=== PATIENT | female | born 1940 | race Caucasian/White ===

== ENCOUNTER 2016-12-14 09:40 | Emergency (ER) | payer MEDICARE ==
[2016-12-14 09:49] VITALS: BP 146/72
--- NOTE | 2016-12-14 10:53 | UC ---
Skin Complaint HPI - HPI Summary HPI Summary: Red, itchy, irreg swollen bumps on face starting 4 days ago, 1 day after doing some weeding and yard work. Has had problems with persistent contact dermatitis in past ralph. Denies trouble breathing, pain, or drainage. - History of Current Complaint Chief Complaint: UCSkin Time Seen by Provider: 12/14/16 10:39 Stated Complaint: SWOLLEN FACE Hx Obtained From: Patient ?: No Onset/Duration: Gradual Onset, Lasting Days Skin Exposure Onset/Duration: Days Ago Timing: Constant Onset Severity: Mild Current Severity: Moderate Location: Face Character: Swelling, Pruritus, Raised Aggravating: Touch Alleviating: Antihistamines Associated Signs & Symptoms: Positive: Rash Related History: Possible Reaction to: Environmental Exposure - Allergy/Home Medications Allergies/Adverse Reactions: Allergies Allergy/AdvReac Type Severity Reaction Status Date / Time Codeine Allergy headache, Verified 04/19/14 12:42 nausea Erythromycin Allergy Hives Verified 04/19/14 12:42 Penicillins Allergy Hives Verified 04/19/14 12:42 Review of Systems Constitutional: Negative Skin: Rash Eyes: Negative ENT: Negative Respiratory: Negative Cardiovascular: Negative Gastrointestinal: Negative Genitourinary: Negative Motor: Negative Neurovascular: Negative Musculoskeletal: Negative Neurological: Negative Psychological: Negative All Other Systems Reviewed And Are Negative: Yes PMH/Surg Hx/FS Hx/Imm Hx Cardiovascular History: Hypertension - Surgical History Surgical History: Yes Surgery Procedure, Year, and Place: left ankle surgical repair of fracture 2007 [place] - Family History Known Family History: Positive: Hypertension - Social History Occupation: Retired Alcohol Use: None Substance Use Type: None Smoking Status (MU): Never Smoked Tobacco Physical Exam Triage Information Reviewed: Yes Appearance: Well-Appearing, No Pain Distress, Obese Vital Signs: Initial Vital Signs Temp 97.7 F 12/14/16 09:42 Pulse 78 12/14/16 09:42 Resp 17 12/14/16 09:42 BP 146/72 12/14/16 09:42 Pulse Ox 100 12/14/16 09:42 Vital Signs Reviewed: Yes Eye Exam: Normal, Other - PERRL Eyes: Positive: Conjunctiva Clear ENT Exam: Normal ENT: Positive: Normal ENT inspection, Hearing grossly normal, Pharynx normal, TMs normal Dental Exam: Normal Neck exam: Normal Neck: Positive: Supple, Nontender, No Lymphadenopathy Respiratory Exam: Normal Respiratory: Positive: Chest non-tender, Lungs clear, Normal breath sounds, No respiratory distress, No accessory muscle use Cardiovascular Exam: Normal Cardiovascular: Positive: RRR, No Murmur Musculoskeletal Exam: Normal Neurological Exam: Normal Neurological: Positive: Alert Psychological Exam: Normal Skin: Positive: rashes - irreg red areas on face, around R eye Course/Dx - Diagnoses Provider Diagnoses: contact dermatitis Discharge - Discharge Plan Condition: Stable Disposition: HOME Prescriptions: predniSONE TAB* [Deltasone TAB*] 50 mg PO DAILY #5 tab Patient Education Materials: Contact Dermatitis (ED) Referrals: Makenna Banda MD [Primary Care Provider] -
== END 2016-12-14 10:53 | disposition home or self-care (01) ==
LOC: UCEAST 09:40
DX: L25.9 Unspecified contact dermatitis, unspecified cause (principal); I10 Essential (primary) hypertension
CPT/HCPCS: 99211; G0463

== ENCOUNTER 2017-06-05 07:29 | Day surgery (SDC) | payer MEDICARE ==
[~2017-06-05 07:29] MED LIST: Buffered Lidocaine 0.9% SYRIN* 5 ML/SYR SYRINGE INTRADERM ONE; Buffered Lidocaine 0.9% SYRIN* 5 ML/SYR SYRINGE ONE; Dexamethasone IV* 4 MG/ML 1 ML (4 MG) IV SLOW PU ONE; Dexamethasone IV* 4 MG/ML 1 ML (4 MG) ONE; Famotidine IV* 10 MG/ML 2 ML (20 mg) IV ONE; Famotidine IV* 10 MG/ML 2 ML (20 mg) ONE; Lidocaine 2.5%/Prilocain 2.5%* 5 GM TUBE ONE; ceFAZolin 2 GM PREMIX (*) 2 GM/50 ML BAG IVPB ONE
[2017-06-05] MEDS ORDERED: Lidocaine 1% MPF wEPI 200,000* 30 ML SDV ONE (11:31)
[2017-06-05] MEDS ORDERED: Bupivacaine 0.25% SDV* 30 ML ONE (11:31)
[2017-06-05] MEDS ORDERED: Methylene Blue 0.5 %* 50 MG/10 ML AMP IV ONE (11:31)
[2017-06-05] MEDS ORDERED: Propofol* 10 MG/ML 20 ML BTL IV PUSH ONE (11:38)
[2017-06-05] MEDS ORDERED: Lidocaine 2% PF * 5 ML VIAL ONE (11:38)
[2017-06-05] MEDS ORDERED: fentaNYL* 50 MCG/ML 2 ML VIAL (100 MCG VIAL) ONE ×3 (11:38→14:59)
[2017-06-05] MEDS ORDERED: Midazolam* 1 MG/ML 2 ML VIAL (2 MG) ONE (11:38)
[2017-06-05] MEDS ORDERED: EPHEDrine (Pressors)* 50 MG/ML VIAL ONE (12:31)
[2017-06-05] MEDS ORDERED: Ondansetron INJ* 2 MG/ML VIAL ONE (12:58)
--- NOTE | 2017-06-05 13:24 | RAD ---
INDICATION: Left breast carcinoma. Preoperative sentinel node imaging. COMPARISON: Mammogram and left breast sonogram May 04, 2017 TECHNIQUE: A routine timeout procedure was called which included informed consent. Left breast was then prepped in usual fashion and 4 intradermal injections were made in the periareolar region. The total dose was 0.321 mCi of technetium 99m sulfur colloid. FINDINGS: There is faint visualization of the sentinel node which was marked on the skin surface. A lateral approach was required for marking which resulted in a small amount of lateral breast tissue projecting over the sentinel node. The skin alyssia was on the lateral breast. IMPRESSION: SENTINEL NODE IMAGING WAS PERFORMED. A CALL WAS PLACED TO THE REFERRING SURGEON REGARDING THE SKIN MARKING.
[2017-06-05] MEDS ORDERED: oxyCODONE/Acetamin 5/325 MG* TAB PO PRN (14:57)
[2017-06-05] MEDS ORDERED: oxyCODONE/Acetamin 5/325 MG* TAB ONE (14:59)
[2017-06-05 16:17] VITALS: BP 133/60
--- NOTE | 2017-06-06 01:55 | OP ---
CC: Dr. Ramirez; Dr. Makenna Banda; Dr. Shukri Ford; Dr. Bob Navarrete OPERATIVE REPORT: DATE OF OPERATION: 06/05/17 DATE OF : 42 SURGEON: Asaf Ramirez MD SENIOR ACCOUNTANT CPA: JONI Raya ANESTHESIOLOGIST: Dr. Oviedo. ANESTHESIA: General anesthetic, local infiltration. PRE-OP DIAGNOSIS: Left breast cancer. POST-OP DIAGNOSIS: Left breast cancer. OPERATIVE PROCEDURE: Wide local excision and sentinel lymph node biopsy of left breast cancer. DESCRIPTION OF PROCEDURE: The patient was supine on the operative table. After adequate general ane sthetic, compression stockings, Leodan Hugger warmer, and intravenous antibiotics, the left chest and a xillary region were prepped with antiseptic and draped in a sterile fashion. Local infiltrative anes thesia was administered. Elliptical incision in the region of the palpable tumor was carried out. T his was approximately 3 x 6 cm in size and the piece of breast tissue approximately 4 x 6 x 6 cm was removed and marked with usual localizing sutures and sent in formalin for pathologic evaluation. Hem ostasis was obtained using electrocautery and the closure was accomplished using 3-0 and 5-0 Vicryl f ollowed by Steri-Strips. In the left axilla, typical axillary incision was created after local anest hetic. This was about 4 to 5 cm in length and dissection carried down to the axillary tissue. A to ronak of 6 separate axillary sentinel nodes were identified. There was also some additional nonsentine l axillary tissue which was removed, all this was sent and labeled separately in formalin. Hemostasi s was obtained using cautery and suture were appropriate. Closure was accomplished using 3-0 and 5-0 Vicryl followed by Steri-Strips. She tolerated the procedure well, was awakened and brought to [facility] in good condition. No complications. No drains. Pathologic specimens as enumerated above. Spo nge and instrument counts were correct. Estimated blood loss is less than 50 mL. [id number]/[facility] #: [id number]
== END 2017-06-05 16:18 | disposition home or self-care (01) ==
LOC: OR 07:29
PROVIDERS: ATTEND Surgery
DX: C50.412 Malignant neoplasm of upper-outer quadrant of left female breast (principal); I10 Essential (primary) hypertension; E78.5 Hyperlipidemia, unspecified
CPT/HCPCS: 78195; 88307; 88341; 88342; A9270-GY; A9541; J0690; J1100; J2001; J2250; J2405; J2704; J3010

== ENCOUNTER 2021-02-22 17:08 | Inpatient (IN) ==
[2021-02-22 21:14] LABS: ABS Lymphocytes 1.1 10^3/ul (1.0-4.8); ABS Monocytes 0.4 10^3/ul (0-0.8); Hematocrit 38 % (35-47); Hemoglobin 12.9 g/dL (12.0-16.0); Lymphocyte % 24.7 %; Mean Corpuscular HGB Conc 35 g/dL (31-36); Mean Corpuscular Hemoglobin 29 pg (27-31); Mean Corpuscular Volume 83 fL (80-97); Mean Platelet Volume 8.4 fL (7.4-10.4); Nucleated Red Blood Cells % 0.2; Platelet Count 167 10^3/uL (150-450); Red Blood Count 4.54 10^6 /uL (3.70-4.87); Red Cell Distribution Width 15 % (10-15); White Blood Count 4.5 10^3/uL (3.5-10.8)
[2021-02-22 21:25] LABS: Activated Partial Thrombo Time 29.6 seconds (26.0-38.0); INR 1.25 (0.86-1.15)
[2021-02-22 21:32] LABS: Albumin 3.6 g/dL (3.2-5.2); Albumin/Globulin Ratio 1.1 (1-3); C Reactive Protein 18.33 mg/L (<8.01); Calcium 7.8 mg/dL (8.6-10.3); EGFR African American 75.8 (>60); EGFR Non-African American 62.6 (>60); Globulin 3.4 g/dL (2-4); Potassium 3.3 mmol/L (3.5-5.0); Total Bilirubin 0.5 mg/dL (0.2-1.0)
[2021-02-22 21:33] LABS: Troponin I 0.02 ng/mL (<0.03)
[2021-02-22 21:35] LABS: Influenza A Molecular Negative (Negative); Influenza B Molecular Negative (Negative)
[2021-02-22 21:52] LABS: Ferritin 733.8 ng/mL (11-307)
[2021-02-22] MEDS ORDERED: Ondansetron 4 mg VIAL 2 MG/ML 2 ml VIAL IV PRN (23:39)
[2021-02-22] MEDS ORDERED: NS 0.9% 500 ml BAG 500 ML IV ONE (23:45)
[2021-02-22] MEDS ORDERED: Potassium Chlor 10 meq TAB PO ONE (23:48)
[2021-02-23] MEDS ORDERED: Iohexol 350 (CONTRAST) 500 ML MDV IV ONE (00:31)
[2021-02-23] MEDS ORDERED: Azithromycin 500 mg/250 mL NS IVPB ONE ×2 (01:14→01:17)
[2021-02-23] MEDS: Enoxaparin 40 MG/0.4 ML SYR SUBCUT SCH ×2 (01:27→12:42)
[2021-02-23 02:03] LABS: Rapid COVID-19 Molecular Detected (Undetected)
[2021-02-23] MEDS ORDERED: Doxycycline 100 MG in NS 0.9% 250 ML BAG IVPB SCH (04:00)
[2021-02-23 04:41] LABS: Urine Appearance Cloudy; Urine Bilirubin Negative (Negative); Urine Blood 1+ (Negative); Urine Color Yellow; Urine Glucose Negative (Negative); Urine Ketones Trace (Negative); Urine Nitrite Negative (Negative); Urine Protein Negative (Negative); Urine Urobilinogen Negative (Negative)
[2021-02-23 05:27] LABS: Urine Bacteria Absent (Absent); Urine Red Blood Cell Trace(0-2/hpf) (Absent); Urine Squamous Epithelial Cell Present (Absent); Urine White Blood Cell Absent (Absent)
[2021-02-23] MEDS: Aspirin EC 81 mg TAB.EC (enteric coated) PO SCH (08:17)
[2021-02-23 11:24] LABS: ABS Lymphocytes 1.3 10^3/ul (1.0-4.8); ABS Monocytes 0.3 10^3/ul (0-0.8); ABS Neutrophils 2.1 10^3/ul (1.5-7.7); Eosinophil % 0.2 %; Hematocrit 38 % (35-47); Hemoglobin 13.1 g/dL (12.0-16.0); Lymphocyte % 35.2 %; Mean Corpuscular HGB Conc 35 g/dL (31-36); Mean Corpuscular Hemoglobin 29 pg (27-31); Mean Corpuscular Volume 83 fL (80-97); Mean Platelet Volume 8.2 fL (7.4-10.4); Nucleated Red Blood Cells % 0.1; Platelet Count 162 10^3/uL (150-450); Red Blood Count 4.57 10^6 /uL (3.70-4.87); Red Cell Distribution Width 14 % (10-15); White Blood Count 3.7 10^3/uL (3.5-10.8)
[2021-02-23 11:37] LABS: C Reactive Protein 21.99 mg/L (<8.01); Calcium 8.3 mg/dL (8.6-10.3); EGFR African American 64.6 (>60); EGFR Non-African American 53.3 (>60); Potassium 3.5 mmol/L (3.5-5.0)
[2021-02-23 13:13] LABS: INR 1.13 (0.86-1.15)
[2021-02-24] MEDS: Enoxaparin 40 MG/0.4 ML SYR SUBCUT SCH (00:05)
[2021-02-24] MEDS ORDERED: Azithromycin 500 mg/250 ml NS 500 MG/250 ML BAG IVPB SCH (01:00)
[2021-02-24] MEDS ORDERED: cefTRIAXone 1 gm/50 mL NS BAG 1 GM/50 ML BAG IVPB SCH (01:00)
[2021-02-24] MEDS: Aspirin EC 81 mg TAB.EC (enteric coated) PO SCH (08:37)
[2021-02-24 08:39] VITALS: BP 126/74
== END 2021-02-24 10:55 | disposition home or self-care (01) | DRG 871 ==
LOC: ED 17:08 → MED 17:08 → SUATTDRO 23:39 → OBSVTOIN 23:39 → MED 02-23 02:19
PROVIDERS: ADMIT Internal Medicine; ATTEND Internal Medicine